=== PATIENT | male | born 1940 | race Caucasian/White ===

== ENCOUNTER 2022-04-30 12:57 | Emergency (ER) | payer MEDICARE, SELFPAY ==
--- NOTE | ~2022-04-30 | XR_ITS ---
EXAMINATION: XR CHEST CLINICAL INFORMATION: Cough. COMPARISON: None TECHNIQUE: 2 views of the chest were obtained. FINDINGS: Generalized hyperinflation. Hazy opacities are seen in the left lower lobe. The right lung is clear. There are no pleural effusions. The heart and mediastinal structures are unremarkable. XR/XR chest 2V IMPRESSION: Hazy opacities in the left lower lobe suggesting acute infiltrates. Possible underlying COPD.
--- NOTE | ~2022-04-30 | CT_ITS ---
EXAMINATION: CT ANGIOGRAM OF THE CHEST WITH AND WITHOUT CONTRAST (CT PULMONARY ANGIOGRAM FOR PE) CLINICAL INFORMATION: Reason for Exam shortness of breath elevated d dimer ro pe COMPARISON: Chest x-ray 04/30/2022 TECHNIQUE: Prior to contrast administration, noncontrast localization images were obtained. Subsequently, multidetector volumetric imaging was performed from the thoracic inlet to below the diaphragms following the administration of 57 mL Omnipaque 350 intravenous contrast. No contrast reaction reported Sagittal, coronal, and MIP oblique sagittal reformatted images were obtained on the CT workstation, uploaded to PACS, and reviewed. This CT examination was performed using dose optimization techniques as appropriate, variously including the following: *Automated exposure control *Adjustment of mA and/or kV according to patient size (this includes techniques or standardized protocols for targeted exams where dose is matched to indication/reason for exam; i.e. extremities or head) *Use of iterative reconstruction technique Total exam dose-length product 282 mGy-cm FINDINGS: QUALITY OF STUDY/CONTRAST BOLUS: Satisfactory. PULMONARY ARTERIES: No central or segmental pulmonary emboli. THORACIC AORTA: No aneurysm or dissection. Scattered vascular calcifications the wall of aorta. LUNG: Marked centrilobular and paraseptal emphysematous change of lungs. Bibasilar dependent bilateral patchy airspace opacities, left greater than right. Patchy airspace opacities in the dependent left upper lobe as well. Findings concerning for pneumonia versus atelectasis. PLEURA: No pleural effusion or pneumothorax. MEDIASTINUM: No mediastinal mass or significant lymphadenopathy. Heart size is normal. No pericardial effusion. No evidence of septal bowing or right heart strain. CHEST WALL/AXILLA: No axillary or internal mammary lymphadenopathy. OSSEOUS STRUCTURES: No acute or suspicious osseous abnormality. UPPER ABDOMEN: Multiple hypodensities in the liver consistent with multiple hepatic cysts. There are multiple renal cyst upper pole midpole right kidney. No follow-up imaging is recommended for simple renal cyst.. Normal adrenal glands. No reflux of contrast into the hepatic veins to suggest elevated right heart pressures. CT/CT angio chest PE protocol IMPRESSION: 1. No evidence of pulmonary embolism. 2. Marked emphysematous change of lungs. 3. Bilateral airspace opacities, left greater than right concerning for pneumonia versus atelectasis. VTE: negative
[2022-04-30 13:13] VITALS: BP 101/73; PULSE 92; RESP 18; TEMP 35.9; O2SAT 94; BMI 20.9
[2022-04-30 15:15] VITALS: BP 125/79; PULSE 86; RESP 20; O2SAT 93
--- NOTE | 2022-04-30 15:33 | ECG_ITS ---
Test Reason : SHORTNESS OF BREATH Blood Pressure : / mmHG Vent. Rate : 073 BPM Atrial Rate : 073 BPM P-R Int : 154 ms QRS Dur : 130 ms QT Int : 394 ms P-R-T Axes : 073 -78 071 degrees QTc Int : 434 ms Normal sinus rhythm Right bundle branch block Left anterior fascicular block Bifascicular block Possible Anterolateral infarct , age undetermined Abnormal ECG No previous ECGs available Referred By: Silvino Beckham Electronically Signed By:SERENA MCCALL
[2022-04-30 16:33] LABS: D Dimer High Sensitivity 560 NG/ML
[2022-04-30 16:38] LABS: COVID-19 Test Negative (Negative)
[2022-04-30 16:40] LABS: B Type Natriuretic Peptide 32 pg/mL (<100)
--- NOTE | 2022-04-30 16:55 | ED.GENADULT ---
HPI - General Adult General Chief complaint: Dyspnea Stated complaint: Pneumomia Time Seen by Provider: 04/30/22 15:15 History of Present Illness HPI narrative: patient complains of cough and some chest tightness and shortness of breath with exertion worsening over the past several weeks, he has had no chest pain no fainting no feeling faint no dizziness no weakness no fever no chills Related Data Previous Rx's Medication Instructions Recorded albuterol sulfate 90 mcg/actuation 2 puff inhalation Q4-6H PRN 04/30/22 aerosol inhaler shortness of breath or wheezing #8.5 grams amoxicillin 875 mg-potassium 1 tab PO BID 7 days #14 tabs 04/30/22 clavulanate 125 mg tablet prednisone 20 mg tablet 60 mg PO DAILY 3 days #9 tabs 04/30/22 Allergies Allergy/AdvReac Type Severity Reaction Status Date / Time No Known Allergies Allergy Verified 04/30/22 13:16 Review of Systems Review of Systems: positive for chest tightness cough sputum Negatives are no fever no chills no dizziness weakness no fainting no feeling faint no headache no neck pain no chest pain no pain with deep breath no abdominal pain no nausea vomiting or diarrhea no leg swelling no calf pain no calf swelling no numbness or weakness Yes all other systems are reviewed and are negative PMFSH Past Medical History Source: nursing notes reviewed Social History Social History Patient Tobacco Use Status: Current everyday Tobacco user Use of substances other than those prescribed or required for medical reasons: No Advance Directives: Yes Advance Directives Information Provided: No Advance Directives on File: No Physical Exam ED Vital Signs: Vital Signs - 24 hr 04/30/22 13:13 04/30/22 15:15 04/30/22 17:54 Temperature 96.6 F L Pulse Rate 92 86 76 Respiratory Rate 18 20 16 Blood Pressure 101/73 125/79 159/81 H Pulse Oximetry 94 93 96 Oxygen Delivery Method Room Air Room Air Room Air 04/30/22 19:08 04/30/22 20:02 04/30/22 21:19 Temperature 97.8 F Pulse Rate 78 75 80 Respiratory Rate 19 18 19 Blood Pressure 154/79 H 135/72 120/80 Pulse Oximetry 96 95 95 Oxygen Delivery Method Room Air Room Air Room Air BMI result Body Mass Index 20.9 general appearance is no acute distress, speaking full sentences Eyes pupils equal round reactive to light extraocular motions are intact The pharynx is clear The sinuses nontender Neck is supple Chest is clear to auscultation bilateral without wheeze or adventitious sound, good air movement The abdomen is soft nontender Extremities no edema, no calf swelling or tenderness, skin no rash, neuro no focal motor sensory deficits, gait and balance are normal, interaction both expression and comprehension are normal Course Course Course Narrative: chest x-ray showed likely left lower lobe infiltrate D-dimer came back elevated so CTA was done, which showed bilateral infiltrates, emphysematous changes to the lungs on the left greater than the right, likely pneumonia There was no evidence of pulmonary embolism EKG was a normal sinus rhythm with a rate of 73, there was a right bundle branch block and a left anterior fascicle block so bi fascicle block, there was no ST elevation no evidence of acute ischemic change BNP was normal, troponin x2 was normal, patient remained comfortable throughout ER visit case was discussed with Dr. Sanches and patient stable throughout ER visit, ambulatory no respiratory distress was discharged Patient was given albuterol treatment which did make him feel some improvement in his breathing Diagnosis is pneumonia, and likely COPD Medical Decision Making Lab Data Lab results reviewed: Yes I reviewed the patient's lab results. Result diagrams: 04/30/22 17:13 04/30/22 17:13 Labs: Lab Results 04/30/22 04/30/22 04/30/22 Range/Units 16:10 16:10 16:10 WBC (4.8-10.8) X10*3/uL RBC (4.60-5.80) X10*6/uL Hgb (14.0-18.0) g/dl Hct (42.0-52.0) % MCV (80.0-98.0) fL MCH (27.0-33.0) pg MCHC (31.0-36.0) g/dl RDW (11.0-16.0) % Plt Count (160-400) X10*3/uL MPV (9.4-12.4) fL Immature Gran % (Auto) (0.0-0.4) % Neut % (Auto) (45-73) % Lymph % (Auto) (20-40) % [place] % (Auto) (2-11) % Eos % (Auto) (0-4) % Baso % (Auto) (0-2) % Lymph # (Auto) (1.2-4.9) X10*3/uL [place] # (Auto) (0.1-1.2) X10*3/uL Eos # (Auto) (0.0-0.4) X10*3/uL Baso # (Auto) (0.0-0.2) X10*3/uL Abs Immat Gran (auto) (0.00-0.03) X10*3/uL Absolute Neuts (auto) (2.0-8.3) x10*3/uL Absolute Nucleated RBC (0.0-0.012) X10*3/uL Nucleated RBC % (auto) (0.0-0.2) /100WBC D-Dimer High Sensitivty 560 NG/ML Sodium (135-145) mmol/L Potassium (3.3-5.1) mmol/L Chloride (96-108) mmol/L Carbon Dioxide (22-29) mmol/L Anion Gap (12-20) BUN (9-16) mg/dL Creatinine (0.5-1.4) mg/dL Estim Creat Clear Calc Estimated GFR Random Glucose (60-115) mg/dL Calcium (8.4-10.2) mg/dL Troponin I High Sens 4.0 (<3.5-35.0) ng/L B-Natriuretic Peptide 32 (<100) pg/mL COVID-19 ([facility]) Negative (Negative) COVID-19 Clin Com See Note 04/30/22 04/30/22 04/30/22 Range/Units 17:13 17:13 20:05 WBC 9.4 (4.8-10.8) X10*3/uL RBC 4.57 L (4.60-5.80) X10*6/uL Hgb 15.2 (14.0-18.0) g/dl Hct 44.1 (42.0-52.0) % MCV 96.5 (80.0-98.0) fL MCH 33.3 H (27.0-33.0) pg MCHC 34.5 (31.0-36.0) g/dl RDW 12.8 (11.0-16.0) % Plt Count 122 L (160-400) X10*3/uL MPV 10.7 (9.4-12.4) fL Immature Gran % (Auto) 0.2 (0.0-0.4) % Neut % (Auto) 61.4 (45-73) % Lymph % (Auto) 29.2 (20-40) % [place] % (Auto) 5.9 (2-11) % Eos % (Auto) 2.9 (0-4) % Baso % (Auto) 0.4 (0-2) % Lymph # (Auto) 2.7 (1.2-4.9) X10*3/uL [place] # (Auto) 0.6 (0.1-1.2) X10*3/uL Eos # (Auto) 0.3 (0.0-0.4) X10*3/uL Baso # (Auto) 0.0 (0.0-0.2) X10*3/uL Abs Immat Gran (auto) 0.02 (0.00-0.03) X10*3/uL Absolute Neuts (auto) 5.8 (2.0-8.3) x10*3/uL Absolute Nucleated RBC 0.000 (0.0-0.012) X10*3/uL Nucleated RBC % (auto) 0.0 (0.0-0.2) /100WBC D-Dimer High Sensitivty NG/ML Sodium 136 (135-145) mmol/L Potassium 4.4 (3.3-5.1) mmol/L Chloride 100 (96-108) mmol/L Carbon Dioxide 26 (22-29) mmol/L Anion Gap 14 (12-20) BUN 23 H (9-16) mg/dL Creatinine 1.04 (0.5-1.4) mg/dL Estim Creat Clear Calc 53.9 Estimated GFR > 60 Random Glucose 96 (60-115) mg/dL Calcium 11.6 H (8.4-10.2) mg/dL Troponin I High Sens < 3.5 (<3.5-35.0) ng/L B-Natriuretic Peptide (<100) pg/mL COVID-19 ([facility]) (Negative) COVID-19 Clin Com Discharge Plan Discharge Clinical Impression: Community acquired pneumonia Patient Disposition: Home, Self-Care Additional Instructions: x-ray and CT scan confirmed pneumonia You will continue the doxycycline prescribed yesterday from urgent care and in addition will take Augmentin which covers other bacteria When taking antibiotics get probiotics [id number] available in the pharmacy which help prevent antibiotic associated diarrhea You may be developing some COPD so I wrote for an albuterol inhaler which you can use at home when you feel like chest is tight, we also added prednisone for a few days which reduces long inflammation The scan was did not show any blood clots in the lungs Follow with your doctor early next week for re-evaluation Return to the ER any time for any difficulty breathing any chest pain any worse condition or any concerns Prescriptions: New amoxicillin-pot clavulanate 875-125 mg tablet 1 tab PO BID 7 Days Qty: 14 0RF albuterol sulfate 90 mcg/actuation HFA aerosol inhaler 2 puff inhalation Q4-6H PRN (Reason: shortness of breath or wheezing) Qty: 8.5 0RF prednisone 20 mg tablet 60 mg PO DAILY 3 Days Qty: 9 0RF
[2022-04-30 17:17] LABS: MANUAL DIFF FLAG NO
[2022-04-30 17:19] LABS: Hemoglobin 15.2 g/dl (14.0-18.0); PLT CLUMP 1; SCAN SMEAR FLAG 1
[2022-04-30 17:21] LABS: Basophils Percent Auto 0.4 % (0-2); Eosinophils Absolute Auto 0.3 X10*3/uL (0.0-0.4); Eosinophils Percent Auto 2.9 % (0-4); Hematocrit 44.1 % (42.0-52.0); Imm Gran Abs Auto 0.02 X10*3/uL (0.00-0.03); Imm Gran Pct Auto 0.2 % (0.0-0.4); Lymphocytes Absolute Auto 2.7 X10*3/uL (1.2-4.9); Lymphocytes Percent Auto 29.2 % (20-40); Mean Corpuscular HGB Conc 34.5 g/dl (31.0-36.0); Mean Corpuscular Hemoglobin 33.3 pg (27.0-33.0); Mean Corpuscular Volume 96.5 fL (80.0-98.0); Mean Platelet Volume 10.7 fL (9.4-12.4); Monocytes Absolute Auto 0.6 X10*3/uL (0.1-1.2); Monocytes Percent Auto 5.9 % (2-11); Neutrophils Absolute Auto 5.8 x10*3/uL (2.0-8.3); Neutrophils Percent Auto 61.4 % (45-73); Red Blood Count 4.57 X10*6/uL (4.60-5.80); Red Cell Distribution Width 12.8 % (11.0-16.0)
[2022-04-30 17:22] LABS: Platelet Count 122 X10*3/uL (160-400); White Blood Count 9.4 X10*3/uL (4.8-10.8)
[2022-04-30 17:40] LABS: Anion Gap 14 (12-20); Blood Urea Nitrogen 23 mg/dL (9-16); Calcium 11.6 mg/dL (8.4-10.2); Carbon Dioxide 26 mmol/L (22-29); Chloride 100 mmol/L (96-108); Creatinine Clr Calc Pharmacy 53.9; Estimated Glomerular Filt Rate > 60; Glucose Random 96 mg/dL (60-115); Potassium 4.4 mmol/L (3.3-5.1); Sodium 136 mmol/L (135-145)
[2022-04-30 17:54] VITALS: BP 159/81; PULSE 76; RESP 16; O2SAT 96
[2022-04-30 19:08] VITALS: BP 154/79; PULSE 78; RESP 19; TEMP 36.6; O2SAT 96
[2022-04-30] MEDS: iohexoL 350 MG/ML 100 ML INFUS..BTL IV (19:09)
[2022-04-30 20:02] VITALS: BP 135/72; PULSE 75; RESP 18; O2SAT 95
[2022-04-30 20:42] LABS: Troponin-I High Sensitivity < 3.5 ng/L (<3.5-35.0)
[2022-04-30 21:19] VITALS: BP 120/80; PULSE 80; RESP 19; O2SAT 95
[2022-04-30] MEDS: predniSONE 20 MG TABLET 60 MG PO (21:24)
[2022-04-30] MEDS: Amoxicillin/Potassium Clav 875 MG TABLET PO (21:24)
[2022-04-30] MEDS: Albuterol/Iprat 2.5/0.5MG 3 ML AMPUL.NEB INHALE (21:24)
== END 2022-04-30 21:50 | disposition home or self-care (01) ==
PROVIDERS: Physician Assistant Medical; Emergency Provider Student in an Organized Health Care Education/Training Program; PCP Internal Medicine
DX: J18.8 Other pneumonia, unspecified organism (principal); R06.02 Shortness of breath; I45.2 Bifascicular block; F17.200 Nicotine dependence, unspecified, uncomplicated; Z20.822 Contact with and (suspected) exposure to COVID-19
CPT/HCPCS: 36415; 71046; 71275; 80048; 83880; 84484; 85025; 85379; 87635; 93005; 99284; Q9967